=== PATIENT | female | born 1980 | race African-American/Black ===

== ENCOUNTER 2016-10-05 20:51 | Emergency (ER) | payer OTHER ==
[~2016-10-05] VITALS: Ht 167.6 cm; Wt 71.2 kg
--- NOTE | ~2016-10-05 | EKG ---
[address] [place] [place] [address] ELECTROCARDIOGRAM REPORT Name: OK CURRY [facility]: [facility] [place] [id number] Admission: 10/05/16 Attend Phys: Discharge: 10/05/16 Date of : 76 Report #: [id number] THIS REPORT FOR: //name// [facility] ED Test Date: 2016-10-05 Test Time: 20:57:07 Pat Name: OK CURRY Department: Room: Gender: F Health Clinician: CWEIDELISA : 1980 Requested By: Gael Thacker Order Number: [id number] MD: Hola Hunt Measurements Intervals [place] Rate: 98 P: 65 RI: 182 QRS: 42 QRSD: 93 T: 157 QT: 348 QTc: 445 Interpretive Statements Sinus rhythm Probable left atrial enlargement Probable LVH with secondary repol abnrm Compared to ECG 07/13/2016 05:35:07 No significant changes Electronically Signed On 10-06-2016 8:53:47 [employer] by Hola Hunt [email or web address] <ELECTRONICALLY SIGNED> By: Hola Hunt MD, [facility] 10/06/16 [id number] [id number] Hola Hunt MD, FACC /EPI
[~2016-10-05 20:51] MED LIST: ALDACTONE25 MG PO; ASPIR 8181 MG PO; CARVEDILOL25 MG PO; CHLORTHALIDONE25 MG PO; IRON325 PO; LOSARTAN POTAS100 MG; MAGNESIUM OXID400 MG PO; NITROGLYCERIN0.4 MG SUBLING; ONDANSETRON ODT4 MG; PAXIL10 MG; PRENATAL PO; PROTONIX40 M1 PO; TRAZODONE HCL100 MG; VERAPAMIL ER240 M1; VITAMIN B-1100 M2 PO
[2016-10-05] MEDS ORDERED: CHLORTHALIDONE25 MG PO (21:15)
[2016-10-05] MEDS ORDERED: ATIVAN1 MG PO (21:16)
[2016-10-05] MEDS ORDERED: NEURONTIN 300300 M1 PO (21:16)
[2016-10-05 21:19] LABS: HEMATOCRIT 36.4 % (37.0-47.0); MCH 28.4 pg (26.0-34.0); MCV 86.1 fL (80.0-100.0); PLATELET COUNT 230 thou/uL (150-400); RBC 4.22 mil/uL (4.20-5.00); RDW 14.2 % (10.5-14.5); WBC 4.1 thou/uL (4.0-11.0)
[2016-10-05 21:20] LABS: MANUAL DIFF YES
[2016-10-05 21:33] LABS: ANION GAP 13 mmol/L (7-16); BUN 15 mg/dL (7-18); CALCIUM 8.8 mg/dL (8.5-10.1); CHLORIDE 100 mmol/L (98-107); CO2 23 mmol/L (21-32); GLUCOSE 83 mg/dL (70-99); POTASSIUM 3.6 mmol/L (3.5-5.1); SODIUM 136 mmol/L (136-145)
[2016-10-05 21:43] LABS: ABSOLUTE NEUTROPHILS 1.4 thou/uL (1.4-8.2); TOTAL CELL COUNT 100
[2016-10-05 21:45] LABS: TROPONIN-I < 0.04 ng/mL (<0.04-0.07)
== END 2016-10-05 22:20 | disposition home or self-care (01) ==
LOC: ER 20:51
PROVIDERS: Emergency Medicine
DX: R07.89 Other chest pain (principal); I10 Essential (primary) hypertension; K21.9 Gastro-esophageal reflux disease without esophagitis; F32.9 Major depressive disorder, single episode, unspecified; F17.210 Nicotine dependence, cigarettes, uncomplicated; F12.90 Cannabis use, unspecified, uncomplicated